=== PATIENT | male | born 1975 ===

== ENCOUNTER → 2018-11-02 21:28 | Outpatient (REF) | payer OTHER, SELFPAY ==
[2018-11-02 22:18] LABS: Add Manual Diff / Slide Review NO; Basophils Absolute Auto 0 /uL (0-100); Basophils Percent Auto 0.2 % (0-2); Eosinophils Absolute Auto 100 /uL (0-450); Eosinophils Percent Auto 2.3 % (2-4); Hematocrit 42.1 % (41-53); Hemoglobin 14.1 g/dL (13.5-17.5); Lymphocytes Absolute Auto 1600 /uL (1100-4500); Mean Corpuscular HGB Conc 33.5 % (30-36); Mean Corpuscular Volume 92.5 fL (80-100); Monocytes Absolute Auto 300 /uL (0-900); Monocytes Percent Auto 6.6 % (3-14); Neutrophils Absolute Auto 2600 /uL (1500-7000); Neutrophils Percent Auto 55.9 % (50-75); Platelet Count 190 X10^3/uL (150-400); Red Blood Cell Count 4.55 X10^6/uL (4.5-5.9); Red Cell Distribution Width 12.8 % (11.6-14.8); White Blood Cell Count 4.7 X10^3/uL (4.5-11.0)
[2018-11-02 22:32] LABS: Alanine Aminotransferase 49 IU/L (21-72); Albumin 4.6 g/dL (3.5-5.0); Albumin Globulin Ratio 1.8 (1.0-2.8); Alkaline Phosphatase 61 U/L (38-126); Aspartate Aminotransferase 34 IU/L (17-59); BUN Creatinine Ratio 21.1 (6-22); Bilirubin Total 0.7 mg/dL (0.2-1.3); Blood Urea Nitrogen 19 mg/dL (9-20); Calcium 9.4 mg/dL (8.4-10.2); Carbon Dioxide 26 mmol/L (22-32); Chloride 103 mmol/L (98-107); Estimated Glomerular Filt Rate > 60.0 mL/min (>60); Globulin 2.6 g/dL (1.7-4.1); Glucose 88 mg/dL (70-100); HEMOLYSIS < 15 (0-50); Potassium 4.1 mmol/L (3.4-5.1); Sodium 139 mmol/L (137-145); Total Protein 7.2 g/dL (6.3-8.2)
[2018-11-02 22:47] LABS: Luteinizing Hormone 3.23 mIU/mL
[2018-11-02 23:05] LABS: Thyroid Stimulating Hormone 1.76 uIU/mL (0.47-4.68)
[2018-11-05 14:25] LABS: Anti Thyroglobulin Antibody < 1 IU/mL (< 2); Thyroid Peroxidase Antibodies 1 IU/mL (< 9)
[2018-11-05 15:48] LABS: Estrogen 114.5 pg/mL (60-190)
[2018-11-06 19:01] LABS: PSA Total 0.33 ng/mL (< 4.01)
[2018-11-08 10:08] LABS: Z- Score (Male) 0.8 SD (-2.0 - +2.0)
== END ==
LOC: LAB 21:28
PROVIDERS: Visit Provider Family Medicine
DX: E29.1 Testicular hypofunction (principal); R53.83 Other fatigue; Z13.89 Encounter for screening for other disorder
CPT/HCPCS: 36415; 80053; 82627; 82672; 82728; 83002; 84153; 84154; 84270; 84305; 84402; 84403; 84439; 84443; 85025; 86376; 86800